=== PATIENT | male | born 1955 | race Two or more races ===

== ENCOUNTER 2018-08-07 12:07 | Emergency (ER) | payer OTHER ==
[~2018-08-07] VITALS: Ht 167.6 cm; Wt 79.4 kg
== END 2018-08-07 15:41 | disposition home or self-care (01) ==
LOC: ER 12:07
DX: K62.5 Hemorrhage of anus and rectum (principal)

== ENCOUNTER 2018-08-15 09:18 | Outpatient (CLI) | payer OTHER | END 2018-08-15 14:36 | disposition home or self-care (01) | LOC: NUCLEAR 09:18 | DX: C18.8 Malignant neoplasm of overlapping sites of colon (principal) | CPT/HCPCS: A9552; 78815 ==